=== PATIENT | female | born 1935 | race Caucasian/White ===

== ENCOUNTER 2017-01-15 08:04 | Inpatient (IN) | payer MEDICARE, BC ==
[~2017-01-15] VITALS: Ht 149.9 cm; Wt 44.0 kg
--- NOTE | 2017-01-15 08:23 | NUR ---
PT STATES SHE ONLY TAKES TWO MEDICATIONS - NITROSTAT FOR BRONCHOSPASMS AND INHALER FOR HER ASTHMA. CANNOT REMEMBER REST OF MEDS NOR ALLERGIES.
[2017-01-15] MEDS ORDERED: ALBU2.5V38 NEB (08:27)
[2017-01-15] MEDS ORDERED: NITR0.4T SL (08:27)
[2017-01-15] MEDS ORDERED: NITROGLYCERIN 0.4 MG/TAB BOTTLE SL ONE ×2 (08:30→08:57)
[2017-01-15] MEDS ORDERED: IV NORMAL SALINE 500 ML BAG IV ONE (08:30)
[2017-01-15] MEDS ORDERED: ASPIRIN 325 MG TABLET PO ONE (08:30)
--- NOTE | 2017-01-15 08:40 | NUR ---
PT IS IN ROOM #1B. DR BRADSHAW EVALUATED THE PT.
[2017-01-15 08:57] LABS: BASOPHILS % (AUTO) 0.5 % (0.0-2.0); EOSINOPHILS % (AUTO) 0.8 % (0.0-7.0); HEMATOCRIT 43.8 % (37-47); HEMOGLOBIN 14.4 G/DL (12.0-16.0); LYMPHOCYTES # (AUTO) 0.8 K/UL (0.8-4.8); LYMPHOCYTES % (AUTO) 14.9 % (20.5-51.5); MEAN CORPUSCULAR HEMOGLOBIN 29.5 UUG (27.0-31.0); MEAN CORPUSCULAR HGB CONC 33 g/dL (32.0-37.0); MEAN CORPUSCULAR VOLUME 89.9 FL (81.0-99.0); MONOCYTES # (AUTO) 0.3 K/UL (0.1-1.30); NEUTROPHILS # (AUTO) 4.3 K/UL (1.8-8.9); NEUTROPHILS % (AUTO) 77.8 % (38.5-71.5); PLATELET COUNT (AUTO) 218 K/UL (150-450); RED BLOOD CELL COUNT(AUTO) 4.88 MIL/UL (4.2-5.4); WHITE BLOOD COUNT (AUTO) 5.4 K/UL (4.0-11.2)
[2017-01-15] MEDS ORDERED: ASPIRIN 325 MG TABLET ONE (08:57)
[2017-01-15 08:59] LABS: CREATININE 0.8 mg/dL (0.6-1.3); POTASSIUM 3.8 mmol/L (3.5-5.1)
[2017-01-15] MEDS ORDERED: FUROSEMIDE 20 MG/2 ML VIAL IV ONE (09:30)
[2017-01-15] MEDS ORDERED: FUROSEMIDE 40 MG/4 ML VIAL ONE (10:04)
[2017-01-15 10:15] LABS: *BILIRUBIN,URIN NEGATIVE (NEGATIVE); *BLOOD, URINE Trace-lysed (NEGATIVE); *CLARITY,URINE CLEAR (CLEAR); *COLOR,URINE YELLOW (YELLOW); *KETONES,URINE TRACE (NEGATIVE); *PROTEIN,URINE TRACE (NEGATIVE); *UROBILINOGEN,URINE 0.2 E.U./dl (NORMAL); LEUKOCYTE ESTERASE ,URINE 1+ (NEGATIVE); NITRITE, URINE NEGATIVE (NEGATIVE); PH,URINE 7.5 (5.0-8.0); UGLUCOSE NEGATIVE (NEGATIVE)
[2017-01-15 10:26] LABS: BACTERIA,URINE FEW /HPF (NONE SEEN); SQUAMOUS EPITHELIAL CELL,UR FEW /HPF (NONE SEEN)
--- NOTE | 2017-01-15 11:01 | NUR ---
REPORT WAS GIVEN TO WOODWORKER HELPER. PT WAS TRANSFERD TO ROOM #220.
[2017-01-15 11:11] VITALS: BP 161/88
[2017-01-15] MEDS ORDERED: LABETALOL HCL 100 MG/20 ML VIAL IV PRN ×2 (11:15)
--- NOTE | 2017-01-15 11:40 | NUR ---
Upon admission pt is grimacing, whimpering due to chest pain. Vitals 175/103, pulse 66, doctor notified. Pt was seen by Dr. Johnson, got an Echo cardiogram, EKG, and CT w/o contrast. EKG seen by Dr. Johnson. Pt was prescribed morphine, pt refused to take Morphine because " It makes me crazy and I don't do well on it" pt also refused metropolol because " It makes me sick". Pt was educated about the risks and benefits of refusing medication. Doctor was notified about pt high blood pressure and that she was placed on telemetry. Pt agreed to take lisinopril. Pt is on 2L or oxygen.
[2017-01-15] MEDS ORDERED: ENOXAPARIN SODIUM 40 MG/0.4 ML DISP.SYRIN SQ ONE (12:30)
[2017-01-15] MEDS ORDERED: MAGNESIUM HYDROXIDE 30 ML LIQUID UDC PO PRN (12:45)
[2017-01-15] MEDS ORDERED: MORPHINE SULFATE 2 MG/1 ML DISP.SYRIN IV ONE ×2 (12:45→13:00)
[2017-01-15] MEDS ORDERED: ONDANSETRON 4 MG/2 ML VIAL IV PRN (12:45)
[2017-01-15] MEDS ORDERED: HYDROMORPHONE 1 MG/1 ML DISP.SYRIN IV PRN (12:45)
[2017-01-15] MEDS ORDERED: HYDROMORPHONE 2 MG/1 ML DISP.SYRIN IV PRN ×2 (12:45→15:45)
[2017-01-15] MEDS: METOPROLOL TARTRATE 25 MG TABLET PO SCH ×3 (12:45→21:00)
[2017-01-15] MEDS ORDERED: ZOLPIDEM 5 MG TABLET PO PRN (12:45)
[2017-01-15] MEDS ORDERED: HYDROMORPHONE 2 MG/1 ML DISP.SYRIN IV ONE (13:00)
[2017-01-15] MEDS ORDERED: IOHEXOL 350 100 ML INFUS..BTL ONE (13:13)
[2017-01-15] MEDS ORDERED: IV NORMAL SALINE 250 ML IV ONE (13:13)
[2017-01-15] MEDS: LISINOPRIL 10 MG TABLET PO SCH (13:35)
[2017-01-15 13:55] VITALS: BP 165/90
[2017-01-15 15:40] VITALS: BP 162/85
[2017-01-15 20:00] VITALS: BP 157/94
--- NOTE | 2017-01-15 20:00 | NUR ---
patient awake, alert,oriented,slightly anxious,received Metoprolol 25 mg po at 1805, bp 157/94,patient still having on going left anterior chest pain on and off worse with inspiration,troponin trending down,echo cardiogram wnl, will continue closely monitor,NSR on tele monitor
[2017-01-15] MEDS: DOCUSATE SODIUM 100 MG CAPSULE PO SCH (20:58)
[2017-01-15] MEDS ORDERED: DOCUSATE SODIUM 250 MG CAPSULE PO SCH (21:00)
[2017-01-15] MEDS: ACETAMINOPHEN 325 MG TABLET PO PRN (21:04)
--- NOTE | 2017-01-15 21:55 | NUR ---
Dilaudid 0.25 mg iv admin for chest pain.
[2017-01-15] MEDS: ENOXAPARIN SODIUM 40 MG/0.4 ML DISP.SYRIN SQ SCH (21:56)
--- NOTE | 2017-01-15 23:30 | NUR ---
DILAUDID EFFECTIVE,PATIENT ASLEEP ,HOB ELEVATED, CONTINUE O2 2L/M VIA N/C
[2017-01-16] VITALS: BP 148/84
[2017-01-16] MEDS: NITROGLYCERIN 0.4 MG/TAB BOTTLE SL PRN (00:19)
--- NOTE | 2017-01-16 00:25 | NUR ---
PATIENT WOKE UP C/O CHEST PAIN 10/10 ,NITROQUICK 0.4 MG SL GIVEN ,EFFECTIVE.
[2017-01-16 04:00] VITALS: BP 142/85
--- NOTE | 2017-01-16 04:24 | NUR ---
PATIENT SLEEPING WELL, NSR ON MONITOR.
[2017-01-16] MEDS: ACETAMINOPHEN 325 MG TABLET PO PRN ×2 (05:30→14:17)
[2017-01-16 06:52] LABS: BASOPHILS % (AUTO) 0.4 % (0.0-2.0); EOSINOPHILS % (AUTO) 0.4 % (0.0-7.0); HEMATOCRIT 41.6 % (37-47); HEMOGLOBIN 13.5 G/DL (12.0-16.0); LYMPHOCYTES # (AUTO) 1.1 K/UL (0.8-4.8); LYMPHOCYTES % (AUTO) 17.1 % (20.5-51.5); MEAN CORPUSCULAR HEMOGLOBIN 29.3 UUG (27.0-31.0); MEAN CORPUSCULAR HGB CONC 33 g/dL (32.0-37.0); MEAN CORPUSCULAR VOLUME 90.2 FL (81.0-99.0); MONOCYTES # (AUTO) 0.4 K/UL (0.1-1.30); MONOCYTES % (AUTO) 6.5 % (0.0-11.0); NEUTROPHILS % (AUTO) 75.6 % (38.5-71.5); PLATELET COUNT (AUTO) 244 K/UL (150-450); RED BLOOD CELL COUNT(AUTO) 4.61 MIL/UL (4.2-5.4); WHITE BLOOD COUNT (AUTO) 6.5 K/UL (4.0-11.2)
[2017-01-16 07:07] LABS: ALANINE AMINOTRANSFERASE 18 U/L (14-59); ALKALINE PHOSPHATASE 103 U/L (50-136); ASPARTATE AMINOTRANSFERASE 16 U/L (15-37); BILIRUBIN,TOTAL 0.7 mg/dL (0.2-1.0); CARBON DIOXIDE 29 mmol/L (21-32); CHLORIDE 101 mmol/L (98-107); CHOLESTEROL 248 mg/dL (<200); GLUCOSE 106 mg/dL (74-106); HDL CHOLESTEROL 84 mg/dL (40-60); MAGNESIUM 2.1 mg/dL (1.8-2.4); PHOSPHOROUS 4.3 mg/dL (2.5-4.9); POTASSIUM 3.9 mmol/L (3.5-5.1); TOTAL PROTEIN, SERUM 7.3 g/dL (6.4-8.2); TRIGLYCERIDES 126 MG/DL (30-150); UREA NITROGEN, BLOOD 22 mg/dL (7-18)
[2017-01-16] MEDS: PANTOPRAZOLE SODIUM 40 MG TABLET.DR PO SCH (07:08)
[2017-01-16 07:14] LABS: THYROID STIMULATING HORMONE 0.971 mIU/mL (0.358-3.740)
--- NOTE | 2017-01-16 08:09 | NUR ---
RECEIVED CLIENT IN BED AWAKE, ALERT AND ORIENTED X4. COMPLIANT. O2 AT 2L.
[2017-01-16] MEDS: ASPIRIN EC 81 MG TABLET.DR PO SCH (08:39)
[2017-01-16] MEDS: METOPROLOL TARTRATE 25 MG TABLET PO SCH ×2 (08:40→21:05)
[2017-01-16] MEDS: LISINOPRIL 10 MG TABLET PO SCH (08:41)
[2017-01-16] MEDS: ENOXAPARIN SODIUM 40 MG/0.4 ML DISP.SYRIN SQ SCH ×2 (10:56→21:07)
[2017-01-16 11:33] VITALS: BP 121/72
--- NOTE | 2017-01-16 12:45 | NUR ---
Client noted in bed resting. Moderate consumption of lunch meal. O2 at 2L. Napped throughout the day.
--- NOTE | 2017-01-16 14:30 | NUR ---
Seen by AGRICULTURAL EQUIPMENT OPERATOR Kelly, explained results of UA to client. Antibiotic ordered.
--- NOTE | 2017-01-16 15:00 | NUR ---
Client is on Rocephin 1 gram for UTI every 24 as prescribed by Jean Claude Parsons.
[2017-01-16] MEDS: CEFTRIAXONE 1 G in IV DEXTROSE 5% 50 ML IV SCH (15:31)
[2017-01-16 15:37] VITALS: BP 111/82
--- NOTE | 2017-01-16 16:58 | NUR ---
PT REFUSED CT CHEST IN SPITE OF EXPLAINING THE IMPORTANCE OF TEST. MD JAVED
--- NOTE | 2017-01-16 18:16 | NUR ---
Client in bed comfortably. Stated she would like to go home. Snacks offered, chocolate pudding and apple sauce provided. Stated she still had moderate pain on her chest and left arm but refused any type of pain medication at this time.
[2017-01-16] MEDS ORDERED: ALBUTEROL SULFATE 2.5 MG/3 ML NEBU NEB PRN (19:00)
--- NOTE | 2017-01-16 19:00 | NUR ---
New orders for Albuterol 2.5/3ml every 6 hrs PRN for wheezing as prescribed by PASHA Mendoza. Client is aware and understands order.
[2017-01-16] MEDS: ALBUTEROL SULFATE 2.5 MG/3 ML NEBU NEB PRN (19:41)
--- NOTE | 2017-01-16 20:00 | NUR ---
NSG: pt received a/o x 4, c/o slight shortness of breath on exertion. on 2L O2 via nc saturating at 99%. tele, SR with pac's and pvc's. ambulatory with assistance, uses bedside commode. call light within reach. bed alarm on.
[2017-01-16 20:26] VITALS: BP 128/77
[2017-01-16] MEDS: DOCUSATE SODIUM 100 MG CAPSULE PO SCH ×2 (21:00→21:05)
[2017-01-17 00:16] VITALS: BP 116/76
[2017-01-17] MEDS: ALBUTEROL SULFATE 2.5 MG/3 ML NEBU NEB PRN (04:12)
[2017-01-17 04:44] VITALS: BP 105/68
[2017-01-17] MEDS: NITROGLYCERIN 0.4 MG/TAB BOTTLE SL PRN (05:28)
--- NOTE | 2017-01-17 05:38 | NUR ---
nsg: pt c/o cp, v/s stable. medicated with 1 tab nitro sl. v/s stable. tele, SR. on 2L O2 via nc. cont to monitor.
[2017-01-17] MEDS: PANTOPRAZOLE SODIUM 40 MG TABLET.DR PO SCH (06:24)
[2017-01-17 06:38] LABS: CARBON DIOXIDE 32 mmol/L (21-32); CHLORIDE 102 mmol/L (98-107); GLUCOSE 108 mg/dL (74-106); POTASSIUM 3.6 mmol/L (3.5-5.1); UREA NITROGEN, BLOOD 28 mg/dL (7-18)
[2017-01-17 06:55] LABS: BASOPHILS % (AUTO) 0.7 % (0.0-2.0); EOSINOPHILS # (AUTO) 0.1 K/uL (0.0-0.7); EOSINOPHILS % (AUTO) 1.3 % (0.0-7.0); HEMATOCRIT 36.7 % (31.2-41.9); HEMOGLOBIN 12.2 g/dL (10.9-14.3); LYMPHOCYTES # (AUTO) 1.1 K/uL (20.0-40.0); MEAN CORPUSCULAR HEMOGLOBIN 30.1 uug (24.7-32.8); MEAN CORPUSCULAR HGB CONC 33 g/dL (32.3-35.6); MEAN CORPUSCULAR VOLUME 90.6 fL (75.5-95.3); MONOCYTES # (AUTO) 0.5 K/uL (2.0-10.0); MONOCYTES % (AUTO) 8.4 % (0.0-11.0); NEUTROPHILS # (AUTO) 4.2 K/uL (1.8-8.9); NEUTROPHILS % (AUTO) 70.6 % (38.5-71.5); PLATELET COUNT (AUTO) 210 K/uL (179-408); RED BLOOD CELL COUNT(AUTO) 4.05 MIL/uL (3.63-4.92); WHITE BLOOD COUNT (AUTO) 5.9 K/uL (3.8-11.8)
[2017-01-17] MEDS: ASPIRIN EC 81 MG TABLET.DR PO SCH (08:08)
[2017-01-17] MEDS: LISINOPRIL 10 MG TABLET PO SCH (08:09)
[2017-01-17] MEDS: METOPROLOL TARTRATE 25 MG TABLET PO SCH ×2 (08:09→20:54)
[2017-01-17] MEDS: ENOXAPARIN SODIUM 40 MG/0.4 ML DISP.SYRIN SQ SCH (09:56)
[2017-01-17 11:12] VITALS: BP 101/59
[2017-01-17] MEDS: ACETAMINOPHEN 325 MG TABLET PO PRN ×2 (12:07→23:56)
[2017-01-17] MEDS: CEFTRIAXONE 1 G in IV DEXTROSE 5% 50 ML IV SCH (14:12)
[2017-01-17 15:51] VITALS: BP 110/74
--- NOTE | 2017-01-17 19:40 | NUR ---
RECEIVED SHIFT REPORT FROM PREVIOUS SHIFT NURSE. PATIENT IS A/O X4. RESTING COMFORTABLY IN BED, NO S/S OF DISTRESS, IN STABLE CONDITION. WILL CONTINUE TO MONITOR PATIENT. INFORMED PATIENT IMPORTANCE OF USING CALL LIGHT WHEN ASSISTANCE IS NEEDED. SAFETY AND COMFORT WILL BE PROVIDED THROUGHOUT SHIFT.
[2017-01-17 20:30] VITALS: BP 124/82
[2017-01-17] MEDS: DOCUSATE SODIUM 100 MG CAPSULE PO SCH (20:56)
[2017-01-18] MEDS: ALBUTEROL SULFATE 2.5 MG/3 ML NEBU NEB PRN (00:20)
[2017-01-18] MEDS: PANTOPRAZOLE SODIUM 40 MG TABLET.DR PO SCH (06:20)
[2017-01-18] MEDS: ACETAMINOPHEN 325 MG TABLET PO PRN ×2 (07:03→21:15)
[2017-01-18] MEDS: ENOXAPARIN SODIUM 40 MG/0.4 ML DISP.SYRIN SQ SCH (08:05)
[2017-01-18] MEDS: LISINOPRIL 10 MG TABLET PO SCH (08:06)
[2017-01-18] MEDS: ASPIRIN EC 81 MG TABLET.DR PO SCH (08:06)
[2017-01-18] MEDS: METOPROLOL TARTRATE 25 MG TABLET PO SCH ×2 (08:06→21:00)
--- NOTE | 2017-01-18 08:15 | NUR ---
PT SITTING UP IN BED SEMI FOWLERS, NO ACUTE DISTRESS NOTED. AOX3. PLEASANT UPON APPROACH. PT C/O PAIN IN CHEST 11/28 BUT REFUSING TO TAKE ANY MEDICATION, NO DISCOMFORT NOTED, MOTOR VEHICLE COMPLIANCE ANALYST [place] AWARE AND SAW PT. VITAL SIGNS WNL. BED IN LOW AND LOCKED POSITION. CALL LIGHT WITHIN REACH.
[2017-01-18] MEDS ORDERED: HYDROCODONE/APAP 5-325MG TABLET PO PRN (08:45)
[2017-01-18 11:43] VITALS: BP 128/80
--- NOTE | 2017-01-18 13:00 | NUR ---
PT SITTING UP IN BED SEMI FOWLERS. REPORTS CHEST PAIN HAS SUBSIDED "THE TYLENOL HELPED SOME". PT REFUSING PAIN MEDICATION AT THIS TIME. NO DISCOMFORT NOTED. WILL CONTINUE TO MONITOR FOR SAFETY.
[2017-01-18 16:33] VITALS: BP 111/69
[2017-01-18] MEDS: CEPHALEXIN MONOHYDRATE 500 MG CAPSULE PO SCH (16:52)
--- NOTE | 2017-01-18 17:21 | NUR ---
PT SITTING UP IN BED EATING DINNER. REFUSED KEFLEX AT 1700 DESPITE EDUCATION. STATES "IF I WANT IT I'LL ASK FOR IT LATER". NO ACUTE DISTRESS NOTED.
--- NOTE | 2017-01-18 19:40 | NUR ---
PT RECEIVED IN BED AWAKE. A/OX4. ABLE TO MAKE NEEDS KNOWN. V/S STABLE. IN NO ACUTE DISTRESS. PT C/O OF CHEST PAIN 10/29. REFUSED STRONGER PAIN MEDICATION, REQUESTED TYLENOL. WILL ADMINISTER ORDERED. IV INTACT AND PATENT. ON RA, 93% O2 SAT, REQUEST TO LEAVE O2NC OFF. NO C/O OF SOB. SAFETY MEASURES IMPLEMENTED. CALL LIGHT WITHIN REACH.
[2017-01-18] MEDS: DOCUSATE SODIUM 100 MG CAPSULE PO SCH (21:00)
[2017-01-18 21:02] VITALS: BP 132/78
--- NOTE | 2017-01-18 22:00 | NUR ---
PT REQUEST COLOSTOMY BAG TO BE CHANGED. COLOSTOMY BAG FOUND TO BE 2/3 FULL. STOMA SITE CLEANED AND DRIED. STOMA IS PINK/RED IN COLOR. WILL CONT TO MONITOR.
[2017-01-19 05:01] VITALS: BP 120/77
--- NOTE | 2017-01-19 05:50 | NUR ---
END OF SHIFT NOTES. PT SLEPT WELL THROUGHOUT SHIFT. IN STABLE CONDITION. IV INTACT AND PATENT. CONT ON 2L NC, TOLERATING WELL. NO C/O PAIN. COLOSTOMY BAG IS C/D/I. ALL NEEDS ATTENDED. SAFETY MAINTAINED. CALL LIGHT WITHIN REACH.
[2017-01-19] MEDS: PANTOPRAZOLE SODIUM 40 MG TABLET.DR PO SCH (06:03)
[2017-01-19] MEDS: ALBUTEROL SULFATE 2.5 MG/3 ML NEBU NEB PRN ×2 (08:02→17:28)
[2017-01-19] MEDS: ACETAMINOPHEN 325 MG TABLET PO PRN ×2 (09:09→17:01)
[2017-01-19] MEDS: ASPIRIN EC 81 MG TABLET.DR PO SCH (09:09)
[2017-01-19] MEDS: LISINOPRIL 10 MG TABLET PO SCH (10:00)
[2017-01-19] MEDS: ENOXAPARIN SODIUM 40 MG/0.4 ML DISP.SYRIN SQ SCH (10:00)
[2017-01-19] MEDS: CEPHALEXIN MONOHYDRATE 500 MG CAPSULE PO SCH ×2 (10:00→17:00)
[2017-01-19] MEDS: METOPROLOL TARTRATE 25 MG TABLET PO SCH ×2 (10:00→21:00)
[2017-01-19] MEDS ORDERED: CEPH500C2 PO (10:26)
[2017-01-19] MEDS ORDERED: METO25TA6 PO (10:26)
[2017-01-19] MEDS ORDERED: ASPI-618 PO (10:26)
[2017-01-19] MEDS ORDERED: LISI10TA5 PO (10:26)
[2017-01-19 11:33] VITALS: BP 125/79
--- NOTE | 2017-01-19 12:00 | NUR ---
Received awake, alert, oriented x 4, on moderate high backrest, eating lunch.
[2017-01-19 15:27] VITALS: BP 105/77
--- NOTE | 2017-01-19 16:00 | NUR ---
Discussed DC plan. Patient not safe to go home alone. Sister [place] be coming home from [place] the [place]. CM will arrange for caregiver 24H until sister will be back, arrange with Home care and they will be picking up the patient tomorrow. Jean Claude Mendoza NP informed by Teresa BERNARDO that patient will not be discharged today
--- NOTE | 2017-01-19 18:00 | NUR ---
Stille refused Keflex po, even after explanation about medication
[2017-01-19 20:00] VITALS: BP 132/84
[2017-01-19] MEDS: DOCUSATE SODIUM 100 MG CAPSULE PO SCH (21:00)
[2017-01-20 05:12] VITALS: BP 149/78
[2017-01-20] MEDS: PANTOPRAZOLE SODIUM 40 MG TABLET.DR PO SCH (06:20)
--- NOTE | 2017-01-20 06:35 | NUR ---
END OF SHIFT NOTES. PT SLEPT WELL THROUGHOUT SHIFT. IN STABLE CONDITION. NO C/O OF CHEST PAIN THROUGHOUT SHIFT. IV INTACT AND PATENT. ON RA, TOLERATING WELL. PT CONTINUES TO REFUSE MEDICATIONS. COLOSTOMY BAG NOT CHANGED PER PT REQUEST. ADHESIVE C/D/I. ALL NEEDS ATTENDED. SAFETY MAINTAINED. CALL LIGHT WITHIN REACH.
[2017-01-20] MEDS: ASPIRIN EC 81 MG TABLET.DR PO SCH (08:07)
[2017-01-20] MEDS: ACETAMINOPHEN 325 MG TABLET PO PRN (08:07)
[2017-01-20] MEDS: ENOXAPARIN SODIUM 40 MG/0.4 ML DISP.SYRIN SQ SCH (08:11)
[2017-01-20] MEDS: METOPROLOL TARTRATE 25 MG TABLET PO SCH (08:24)
[2017-01-20 08:25] VITALS: BP 160/91
[2017-01-20] MEDS: LISINOPRIL 10 MG TABLET PO SCH (08:25)
[2017-01-20] MEDS: CEPHALEXIN MONOHYDRATE 500 MG CAPSULE PO SCH (08:25)
--- NOTE | 2017-01-20 08:30 | NUR ---
AWAKE ALERT COOPERATE WELL NO SOB OR PAIN EAT BREAKFAST WITH GOOD APPETITE ON FALL PRECAUTION BED ALARM ON AND CALL LIGHT IN REACH
--- NOTE | 2017-01-20 10:00 | NUR ---
DR SEEN PATIENT REGIONAL OPERATIONS MANAGER Rosa Elena [place] AND ORDER OK TO D/C HOME TODAY WITH PRECRIPTION
--- NOTE | 2017-01-20 10:30 | NUR ---
D/C INSTRUCTION REGARDING F/U WITH PMD CONTINUE HOME MEDICINE ORDER ,VERBALIZES UNDERSTAND AND SIGNS D/C SHEET HL WAS DISCONTINUE PRIOR D/C HOME REFUSED PHAMACY INSTRUCTION ON HOME MEDICINE AND PICTURE TAKEN
--- NOTE | 2017-01-20 10:30 | NUR ---
D/C HOME WITH HER BELONGING ACCOMPANIES WITH SENIOR MAINFRAME PROGRAMMER ANALYST
== END 2017-01-20 10:30 | disposition home health service (06) | DRG 281 ==
LOC: ER 08:04 → TELE 10:23 → TELE-TD 11:30 → TELE 01-16 15:45 → MED 01-17 18:57
PROVIDERS: ADMIT Internal Medicine; ATTEND Internal Medicine
DX: I21.A1 Myocardial infarction type 2 (principal); I50.32 Chronic diastolic (congestive) heart failure; J90 Pleural effusion, not elsewhere classified; D68.59 Other primary thrombophilia; I11.0 Hypertensive heart disease with heart failure; N39.0 Urinary tract infection, site not specified; Z68.1 Body mass index [BMI] 19.9 or less, adult; I48.91 Unspecified atrial fibrillation; B96.20 Unspecified Escherichia coli [E. coli] as the cause of diseases classified elsewhere; J45.909 Unspecified asthma, uncomplicated; M40.209 Unspecified kyphosis, site unspecified; R62.7 Adult failure to thrive; Z85.3 Personal history of malignant neoplasm of breast; Z90.49 Acquired absence of other specified parts of digestive tract; K21.9 Gastro-esophageal reflux disease without esophagitis; Z85.038 Personal history of other malignant neoplasm of large intestine; Z93.3 Colostomy status; B95.1 Streptococcus, group B, as the cause of diseases classified elsewhere; I24.9 Acute ischemic heart disease, unspecified; K22.4 Dyskinesia of esophagus; Z91.041 Radiographic dye allergy status
CPT/HCPCS: 36415; 70030-TC; 71010; 71270; 78579; 83605; 83735; 84100; 84443; 85025; 85730; 87040; 87077; 87086; 93005; 93307; 94640; 94664; 97116; 97530; A4663; A9540; A9567; J0696; J1170; J1650; J1940; J7030; J7050; J7060; Q9967